=== PATIENT | female | born 1935 | race Caucasian/White ===

== ENCOUNTER 2016-11-08 14:41 | Inpatient (IN) | payer MEDICARE, OTHER ==
--- NOTE | ~2016-11-08 | OP ---
Record Of Operation [facility] [address] [place]. [address] NAME: YAMILET ALVARENGA : 36 STATUS : ADM IN PAT#: [id number] AGE: 80 ADM/REG DATE : 11/08/16 MR#: [id number] REPORT SERV DATE: 11/10/16 DICTATED BY: ROMA CAPELLAN DATE: 11/10/16 REPORT STATUS : Draft TRANSCRIBED BY: CARRIE DATE: 11/10/16 DATE OF PROCEDURE: 11/10/2016 PREOPERATIVE DIAGNOSIS: Basilar neck fracture, right hip. POSTOPERATIVE DIAGNOSIS: Basilar neck intertrochanteric fracture, right hip. PROCEDURE: Cemented bipolar prosthesis, right hip. DESCRIPTION OF PROCEDURE: The patient was brought to the operating room after several attempts of spinal anesthesia. This was eventually successful. The patient was supplemented with both IV and inhalation sedation. Decision was made to do a cemented bipolar prosthesis because of her severe pulmonary disease and marked osteoporosis. It was not felt that compression screw would be of satisfactory to give her stabilization for mobility further pulmonary demise. She was placed in a lateral position with hip, thigh, groin, leg and buttock were scrubbed, prepped, and draped in usual sterile fashion. A posterior lateral incision beginning in the greater trochanter was carried proximally down the skin and subcutaneous tissue and down the fascia chante which was cleaned off and divided in the direction of skin incision. A Charnley retractor was placed deep in the wound protecting the sciatic nerve. The rotators were identified, cleaned off with periosteal elevator, and hemostasis obtained using electrocoagulation. The piriformis tendon was tagged with a #1 Vicryl suture, and the rotators and capsule were divided by electrocautery along the neck in the trochanter. The fracture was identified and appeared to be more intertroch than basilar neck with some comminution of the neck posterior medial cortex and minimal displacement of the greater trochanter at this point. The head was removed with some difficulty, initially trying to use a corkscrew and ligamentum teres cutter and then trying to use a tenaculum approximately 50%. It was removed piecemeal and then the major intra- articular fragment was removed after ligamentum teres was able to be divided. Hemostasis was obtained using electrocoagulation. Multiple fragments along the neck were removed. The femoral canal was prepared by initial cylindrical reaming up to 14-15 mm and broaching to a size 3 in 30 degrees of anteversion. Trial reduction was done with 44 and 45 as well as 46 mm acetabular component, thus 45 gave an excellent suction fit. Some extraneous soft tissue was removed both by rongeur and with a curette from the acetabulum. The femoral canal was prepared by using a canal brush. A large cement restrictor 2-3 cm distal to the tip of the prosthesis and pulse lavage irrigation and two packs of cement were vacuum mixed and inserted with a cement gun pressurized with an osteotome. The size 2 Savannah Vernon stem was placed in 25 degrees of anteversion. The extraneous cement was removed. Record Of Operation [address] [address] NAME: YAMILET ALVARENGA : 36 STATUS : ADM IN PAT#: [id number] AGE: 80 ADM/REG DATE : 11/08/16 MR#: [id number] REPORT SERV DATE: 11/10/16 DICTATED BY: ROMA CAPELLAN DATE: 11/10/16 REPORT STATUS : Draft TRANSCRIBED BY: CARRIE DATE: 11/10/16 Trial reduction was done with a 0 and +4 neck, 0 giving good stability and no impingement. The Tracy taper was meticulously dried. The +0 head was impacted and then a 45 mm bipolar component snapped into place. The components were reduced. Full range of motion with good stability were obtained. The greater trochanter had completely pulled away by this point and was reattached with multiple #2 FiberWire sutures passed through drill holes and passed through the bone of the shaft and then reinforced through the iliotibial band and some of the subperiosteal tissue. The piriformis tendon was loosely reattached to the posterior aspect of the greater trochanter. The fascia chante was closed with running interrupted #1 Vicryl sutures, subcutaneous tissue with 2-0 and the skin with skin naomie. The wound was instilled with 0.5% Marcaine with epinephrine. The patient was stable as could be expected throughout the procedure. She received 700 mL crystalloid, 250 mL of albumin, and had a blood loss of approximately 350 mL. NS/MODL Roma Capellan M.D. / [id number] CC: Maria Elena Garcia M.D.
--- NOTE | ~2016-11-08 | HP ---
History And Physical [address] [place]. [address] NAME: YAMILET ALVARENGA : 36 STATUS : ADM IN PAT#: [id number] AGE: 80 ADM/REG DATE : 11/08/16 MR#: [id number] REPORT SERV DATE: 11/08/16 DICTATED BY: LUCILLE OSORIO DATE: 11/08/16 REPORT STATUS : Draft TRANSCRIBED BY: CARRIE DATE: 11/08/16 DATE OF ADMISSION: 11/08/2016 CHIEF COMPLAINT: Left hip fracture and fall. HISTORY OF PRESENT ILLNESS: The patient is a 80-year-old female with past medical history of COPD, Alzheimer's dementia, depression, anxiety, thyroid disorder, bladder cancer seen by Dr. Castanon in the past who was recently on hospice due to likely Alzheimer's and COPD, but has been currently off hospice and at [facility] residence where she has been previously doing her daily activities. She was transferring from bed to wheelchair when she had fall approximately on Monday. She has also recently had treatment for urinary tract infection about two weeks ago and completed treatment but over the last few days has had increased shortness of breath also. She was started on Bactrim antibiotics yesterday but has been complaining of hip pain. It has been on left side, constant, moderate sharp severity, decreased activity. No nausea or vomiting, but did have little bit of fevers, wheeze, cough, and congestion. No radiating symptoms were reported. Symptoms were worse at hip with range of motion and palpation, relieved only by rest. Symptoms are currently present. The patient is slightly more weak than her baseline per family. The patient does have baseline dementia and is minimally interactive at times. The patient was found to have pneumonia and left hip fracture. The patient has been discussed with Dr. David Gandara, Orthopedic and family requesting to proceed with OR when able. ADDITIONAL REVIEW OF SYSTEMS: A 10-point review of systems negative except for that noted in the HPI. However, majority of review of systems obtained from family as the patient unable to respond well with verbal responses at this time and from history from outside facility. Past medical history obtained from prior records. ALLERGIES: NOTED FOR MORPHINE AND MELOXICAM. PAST MEDICAL HISTORY: Of diabetes, hypertension, heart disease, stroke, seizure, peptic ulcer disease, biliary tract disease, liver disease, sleep apnea, COPD, Alzheimer's dementia since 2009, bladder cancer seen by Dr. Castanon, respiratory status seen by Dr. Thornton. SURGICAL HISTORY: Appendectomy many years ago, has had skin lesions removed in the past. FAMILY HISTORY: Of strokes. SOCIAL HISTORY: Prior smoking history quit in 2013. No current alcohol or illicits. MEDICATIONS: Duo-nebs, aspirin, vitamin D, Celexa, Neurontin, Eola, levothyroxine, Ativan, Theravent, fish oil, Senokot, trazodone, Bactrim DS, Neosporin, Depakene. EKG: Normal sinus rhythm, rate 96, QTc 437. PHYSICAL EXAMINATION: History And Physical [address] [address] NAME: YAMILET ALVARENGA : 36 STATUS : ADM IN [facility]#: [id number] AGE: 80 ADM/REG DATE : 11/08/16 MR#: [id number] REPORT SERV DATE: 11/08/16 DICTATED BY: LUCILLE OSORIO DATE: 11/08/16 REPORT STATUS : Draft TRANSCRIBED BY: CARRIE DATE: 11/08/16 VITAL SIGNS: Blood pressure 97/55, temperature 100.4, pulse 94, respirations 22, O2 sats 94% on 4 L. GENERAL: Frail elderly. EYES: No scleral icterus. EOMI. ENT: Dry mucous membranes. Nares patent. RESPIRATORY: Polyphonic breath sounds bilateral. CHEST: Equal chest expansion. CV: Tachycardic, no rubs. No pedal edema. GI: Soft, nontender, nondistended. Bowel sounds positive. : Deferred. MUSCULOSKELETAL: Pain with left lower extremity motion and lifting up. SKIN: Warm and dry with areas of picking, unable to turn patient due to pain. Family requested not to rotate the patient currently at this time to decrease pain to patient. HEME: No bleeding or bruising grossly. NEURO: Awakens to verbal stimulation and tactile stimulation. Minimally responsive, does have a hard auditory history and does squeeze hands on command. PSYCH: Difficult to appreciate mood and affect secondary to pain and underlying dementia. LABS: Portable chest; low lung volumes, crowding with bibasilar atelectasis. CMP; procalcitonin 0.61, sodium 144, potassium 3.7, BUN creatinine 27 and 1.31. LFTs within normal limits. Depakene 70.6. Urinalysis; negative leukocyte esterase and nitrites. Lactate 1.1. ABG; pH 7.39, pCO2 44, pO2 39, bicarb 26.2. CBC: WBC count 12.7, H and H 13 and 39.3, platelets 217, and INR 1.2. ASSESSMENT AND PLAN: 1. Healthcare-associated pneumonia, present on arrival. 2. Sepsis, present on arrival. 3. Left hip fracture, present on arrival. 4. Hypotension. 5. Azotemia. 6. Chronic debility. 7. Congestive heart failure history reported. 8. DNR DNI. PLAN: 1. For HCAP, IV vanc and cefepime, given healthcare association, and these have been started in the emergency room. Lactate within normal limits. The patient when calculating CURB-65 does have a CURB-65 of at least 3 with approximately 13% to 14% mortality, based of just pneumonia component. 2. We will continue close monitoring, IV fluids, goal-directed therapy in the presence of sepsis too. 3. Sepsis present on arrival with tachycardia, tachypnea, leukocytosis, early goal- directed therapy initiated in the emergency room. IV fluids have been bolused initially with improvement and response to blood pressure. We will continue IV fluids, History And Physical [address] [address] NAME: YAMILET ALVARENGA : 36 STATUS : ADM IN [facility]#: [id number] AGE: 80 ADM/REG DATE : 11/08/16 MR#: [id number] REPORT SERV DATE: 11/08/16 DICTATED BY: LUCILLE OSORIO DATE: 11/08/16 REPORT STATUS : Draft TRANSCRIBED BY: MODSalma DATE: 11/08/16 monitoring closely. 4. The patient family reports CHF history although last ejection fraction approximately 55% to 60% in 2013. We will monitor, close I's and O's. 5. Left hip fracture. Evaluate per Orthopedic. Guardado score approximately 5.63%. Family requesting to proceed with Ortho or when able to. Given the patient's multiple comorbidities, it has been explained by this scenario writer and additionally by Orthopedic team high risk complications including and mortality. We will ask for additional assistance from Pulmonary for additional options for optimizing pulmonary history along with treating HCAP. We will do chest PT, O2, Duo-nebs if any additional optimization can be done. 6. Hypotension, responding to IV fluids. We will continue to monitor closely. 7. Azotemia, IV fluids treat HCAP. 8. Chronic debility. Go to PT/OT when tolerating. 9. CHF history, currently hypovolemic with EF last noted in 2013 55% to 60%, IV fluids for that and monitor vital signs. 10.DNR DNI seen on POLST form. Additionally confirmed with family members who are at bedside but agreeable for antibiotics and surgical intervention if required. DDN/MODL Lucille Osorio MD / [id number] CC: MD Rafael Tobin M.D.
--- NOTE | ~2016-11-08 | CN ---
Consultation Report [facility] [address] [place]. [address] NAME: YAMILET ALVARENGA : 36 STATUS : ADM IN PAT#: [id number] AGE: 80 ADM/REG DATE : 11/08/16 MR#: [id number] REPORT SERV DATE: 11/09/16 DICTATED BY: SUNIL PATEL DATE: 11/09/16 REPORT STATUS : Draft TRANSCRIBED BY: MODSalma DATE: 11/09/16 CONSULTATION DATE OF CONSULTATION: 11/09/2016 CHIEF COMPLAINT: Shortness of breath and cough. HISTORY OF PRESENT ILLNESS: Mrs. Yamilet Alvarenga is a 80-year-old white female with a past medical history significant for Alzheimer's dementia, COPD with oxygen dependence, emphysema, and congestive heart failure, who presents to [facility]'s Emergency Room after sustaining a fall and fracture to the left femur. It should be noted that, Mrs. Alvarenga has not been hospitalized recently, but has an overall declining course over the last two to three months. Mrs. Alvarenga is followed in our outpatient clinic by Dr. Thornton. She was last seen in January of last year for concerns related to her COPD and mediastinal lymphadenopathy. The patient is on chronic oxygen continuously at 2 L. That being said, she often refuses to wear her oxygen. She has been on pulmonary medications in the past, but again has refused these medications. The patient quit smoking in 2012, prior to this time, she smoked one or two packs of cigarettes a day for a period of 35 years. She largely denies symptomatology consistent with obstructive sleep apnea. She has difficulty quantifying her exercise tolerance as she has had difficulty with ambulation as of late. It should be noted that Mrs. Alvarenga has great difficulty providing any historical information. That being said, her daughter who is currently at bedside has been very helpful with the following information. Apparently, Mrs. Alvarenga has become difficult to manage at home and the daughter recently had her staying in a penitentiary facility. While she was there, apparently she developed symptoms consistent with UTI and was treated with antibiotics. She was apparently ambulating there with a walker when she took a fall and unfortunately with her descent to the floor experiencing intertrochanteric fracture of the proximal left femur. During this time, she was noted to have a rattling cough. The concerns over the fracture and pneumonia prompted her transfer to [facility]. Upon arrival, she was found to have a white blood cell count of 13,000. Initial creatinine was 1.3. She did undergo an x-ray of the left hip, which did in fact show femur fracture. A chest x-ray was obtained as well, which showed low lung volumes with crowding of the pulmonary vasculature. There is some bibasilar atelectasis appreciated as well. The patient was started on healthcare acquired pneumonia coverage and was seen by Surgery for consideration of fixation of her left fracture. Pulmonary has been consulted for assistance in treating the pneumonia as well as hopeful preoperative optimization. Currently, Mrs. Alvarenga is on a nonrebreather with good oxygen saturations. She is in no obvious signs of respiratory distress. She does cough periodically, but is not expectorating any purulent sputum. She denies any worsening shortness of breath. Her Consultation Report [facility] [address] [place]. [address] NAME: YAMILET ALVARENGA : 36 STATUS : ADM IN [facility]#: [id number] AGE: 80 ADM/REG DATE : 11/08/16 MR#: [id number] REPORT SERV DATE: 11/09/16 DICTATED BY: SUNIL PATEL DATE: 11/09/16 REPORT STATUS : Draft TRANSCRIBED BY: CARRIE DATE: 11/09/16 daughter denies any overt signs of aspiration. She does have known COPD and emphysema. The patient currently denies any murmurs, angina, or palpitations. She denies any orthopnea or dependent edema. In regard to constitutional symptoms, she has had some mild low-grade temperatures measured here as high as 100.4. She denies any nausea and vomiting, abdominal pain, or edema. PAST MEDICAL HISTORY: 1. COPD with oxygen dependence. 2. Mediastinal lymphadenopathy. 3. Emphysema. 4. Alzheimer's dementia. 5. Bladder cancer. 6. Chronic diarrhea. 7. Congestive heart failure. 8. Dyslipidemia. PAST SURGICAL HISTORY: 1. Appendectomy. 2. Cataract surgery. 3. Cholecystectomy. 4. Cystoscopy with resection of tumor. 5. Laminectomy of lumbar spine x2. 6. Partial colectomy. FAMILY HISTORY: The patient states her father had black lung. SOCIAL HISTORY: The patient is . She has three children: Two daughters and one son. She previously worked as a basin finish operator tig welder and may have had excessive exposures to welding fumes. She denies any known exposures to asbestos or silica. TOBACCO/ALCOHOL: As previously mentioned, the patient quit smoking in 2012, prior to this time, she smoked one to two packs a day for a period of 35 years. She denies any recent alcohol or illicit drug use. MEDICATIONS: 1. DuoNebs. 2. Aspirin 81 mg. 3. Citalopram 20 mg. 4. Gabapentin 100 mg. 5. [place] 10/325. 6. Levothyroxine 25 mcg. 7. Lorazepam 0.5 mg. 8. Trazodone 50 mg. Consultation Report [address] [address] NAME: YAMILET ALVARENGA : 36 STATUS : ADM IN [facility]#: [id number] AGE: 80 ADM/REG DATE : 11/08/16 MR#: [id number] REPORT SERV DATE: 11/09/16 DICTATED BY: SUNIL PATEL DATE: 11/09/16 REPORT STATUS : Draft TRANSCRIBED BY: CARRIE DATE: 11/09/16 9. Bactrim. 10.Valproic acid 250 mg. ALLERGIES: THE PATIENT HAS KNOWN ALLERGIES TO MORPHINE. SHE HAS ADVERSE REACTION TO MOBIC. REVIEW OF SYSTEMS: A complete review of systems was performed with pertinent positives and negatives contained within the body of the HPI. PHYSICAL EXAMINATION: VITAL SIGNS: Blood pressure is 108/58, heart rate 72, T-max is 97.5, respiratory rate is 19, SPO2 is 100% on a nonrebreather. GENERAL: Mrs. Alvarenga is a confused, demented 80-year-old white female, who is not currently exhibiting any signs of acute distress. SKIN: Skin with appropriate texture and turgor. No rashes, lesions, or ulcers. HEENT: Head skull is normocephalic, atraumatic. Facies are symmetric. No masses or lesions. Eyes: Sclerae anicteric. Conjunctivae pink without exudates. Extraocular movements are intact. Pupils are equal, round, and reactive to light. Ears: Auricles and tragus without pain to palpation. Hair is grossly intact. Nose: Bilateral nasal patency. Sinuses without tenderness upon palpation. Throat: The patient refuses to open her mouth. NECK: Neck is supple. Trachea midline. No cervical lymphadenopathy appreciated. THORAX/LUNGS: Thorax is symmetric with equal chest rise. Breath sounds are audible through entire field. There are diffuse rhonchi appreciated throughout. CARDIOVASCULAR: Regular rate and rhythm. No murmurs, rubs, or gallops. Anterior chest without thrills, heaves, or lifts. ABDOMEN: Soft, nondistended, nontender. Active bowel sounds in all four quadrants. PERIPHERAL VASCULAR: No edema. No varicosities, stasis changes, open sores, ulcerations, or phlebitis. 2+ pulses in the radial. MUSCULOSKELETAL: Left hip not ranged. NEUROLOGIC: Cranial nerves 2-12 grossly intact. PSYCHIATRIC: The patient is alert, but not fully oriented to place or time. ACCESSORY DATA: White blood cell count is 6600, hemoglobin and hematocrit are 10.5 and 32.4. Procalcitonin is 0.61. Electrolyte panel was within normal limits. Arterial blood gas on 3 L reveals pH of 7.39, PACO2 of 44, PAO2 of 39, and bicarb of 26.1. Two view of the hip reveals a fractured left hip. Chest x-ray reveals possible pneumonia and atelectasis in the bases. IMPRESSION: 1. Xmntv-ie-lljmagh hypoxemic respiratory failure. 2. Healthcare-acquired pneumonia. 3. Left intertrochanteric femur fracture. 4. Chronic obstructive pulmonary disease. 5. Congestive heart failure. Consultation Report [address] [address] NAME: YAMILET ALVARENGA : 36 STATUS : ADM IN [facility]#: [id number] AGE: 80 ADM/REG DATE : 11/08/16 MR#: [id number] REPORT SERV DATE: 11/09/16 DICTATED BY: SUNIL PATEL DATE: 11/09/16 REPORT STATUS : Draft TRANSCRIBED BY: MODL DATE: 11/09/16 6. Alzheimer's dementia. PLAN: 1. At this time, we will transition the patient from a nonrebreather to a humidified oxygen source and wean accordingly with the understanding that she has some baseline hypoxemia even at 2 L of oxygen. The patient is appropriately DNR and DNI at this time. 2. In regard to the patient's healthcare-associated pneumonia, she has been placed on appropriate antibiotic coverage. We will attempt to obtain sputum to help guide further antibiotic treatment. We will attempt to increase her pulmonary toilet with the understanding that she is somewhat limited in this regard. 3. In regard to the patient's left fracture and need for surgical intervention in a timely fashion, we will attempt to optimize her as soon as we can. That being said, we would consider her to be a high risk for pre, christine, and postoperative pulmonary complications. Her ARISCAT score for overall postoperative pulmonary complications is calculated at 13.3%. Her Arozullah score for the need of continuous mechanical ventilation postprocedurally is estimated to be 26.6%. 4. In regard to the patient's chronic obstructive pulmonary disease, we will place her on a full armamentarium and nebulized medications. 5. In regard to the patient's Alzheimer's dementia, the patient does understand the associated risks and her overall poor prognosis at this point. The aforementioned impression and plan has been discussed with Dr. Candelario who will follow further recommendations. We thank you for this consult and look forward to participating in the care of Mrs. Yamilet Alvarenga. GBS/MODL Sunil Patel PA-C / [id number] CC: MD Rafael Tobin M.D.
--- NOTE | ~2016-11-08 | DS ---
Discharge Summary [id number] [place]. [address] NAME: YAMILET ALVARENGA : 37 STATUS : DIS IN PAT#: [id number] AGE: 81 ADM/REG DATE : 11/08/16 MR#: [id number] REPORT SERV DATE: 01/17/17 DICTATED BY: MARIAM ARCHULETA DATE: 11/16/16 REPORT STATUS : Draft TRANSCRIBED BY: CARRIE DATE: 11/16/16 ADMISSION DATE: 11/08/2016 DISCHARGE DATE: 11/16/2016 CONSULTATION: 1. Dr. David Gandara, orthopedic surgeon. 2. Pulmonology. PROCEDURES: Cemented bipolar prosthesis, right hip. DISCHARGE DIAGNOSES: 1. Healthcare-associated pneumonia. 2. Acute on chronic respiratory failure. 3. Chronic obstructive pulmonary disease exacerbation. 4. Left intertrochanteric fracture of the proximal left femur status post cemented bipolar prosthesis. 5. Advanced dementia, Alzheimer type. 6. Hypothyroidism. 7. Diastolic heart failure with preserved EF, compensated. HISTORY OF PRESENT ILLNESS: This is an 81-year-old female with medical history significant for COPD, Alzheimer dementia, depression, anxiety disorder, thyroid disorder, bladder cancer, being seen by Dr. Alegria in the past, who was on hospice care secondary to advanced dementia and advanced COPD and a resident of [facility] long-term, who presented to the hospital after a ground-level fall, found to have left hip fracture. In the ER, she was found to have polyphonic breath sounds. Chest x-ray noted for low lung volumes and bibasilar atelectasis. WBC was elevated at 12.7. An assessment of left hip fracture was made as well as healthcare-associated pneumonia, and she was admitted to the hospitalist service for further management. HOSPITAL COURSE: HCAP: The patient was started on broad-spectrum antibiotics with IV vancomycin and cefepime. The patient was continued on DuoNebs. The patient's shortness of breath, cough, continues to improve throughout the course of admission. The patient was noted to also have significant increase in oxygen requirement and was noted to develop acute on chronic respiratory failure during the course of this admission. This was attributed to both HCAP as well as COPD exacerbation. The patient's white cell count gradually trended down, oxygen requirement went back to baseline, and IV antibiotics was transitioned to p.o. antibiotics. The patient continued to tolerate p.o. antibiotics, completed a total of 10 days treatment for HCAP prior to discharge. At the time of discharge, the patient's oxygen requirement has now returned back to baseline of 3 L of oxygen. Acute on chronic respiratory failure related HCAP as well as COPD exacerbation. The patient continued to get, in addition to IV antibiotics, IV steroids as well as aggressive breathing treatment. The patient's oxygen requirement initially was as high as 10 L. Also, at a point, requiring a Vapotherm for respiratory support. The patient's pneumonia and COPD continued to improve. The patient's respiratory status also improved, and at the time of Discharge Summary [address] [place]. [address] NAME: YAMILET ALVARENGA : 37 STATUS : DIS IN PAT#: [id number] AGE: 81 ADM/REG DATE : 11/08/16 MR#: [id number] REPORT SERV DATE: 01/17/17 DICTATED BY: MARIAM ARCHULETA DATE: 11/16/16 REPORT STATUS : Draft TRANSCRIBED BY: CARRIE DATE: 11/16/16 discharge, the patient was requiring oxygen at normal baseline. Left hip fracture: The patient was noted to have a hip fracture on presentation. Orthopedic Surgery was consulted. Recommended a cemented bipolar prosthesis on the right hip. The patient had this procedure done during the course of this admission without any further complications. The patient was advised to continue physical therapy as an outpatient and follow up with orthopedic surgeon. Advanced dementia secondary to Alzheimer disease: The patient is known to have Alzheimer disease. The patient's daughter was at the bedside throughout the course of this admission. At the time of discharge, the patient will be discharged back to longterm facility at [facility]. All family's questions and concerns were addressed during the course of this admission. Family member was in agreement with this discharge plan. X-ray of the pelvis shows, impression, fracture of the left hip. DISCHARGE DISPOSITION: To [facility]. DISCHARGE ACTIVITIES: As tolerated. DISCHARGE DIET: Low-salt diet. A total of 35 minutes was spent on this patient's discharge, reconcile medication, and advised this patient on discharge plans and followup. IOO/MODL Mariam Archuleta MD / [id number]
--- NOTE | ~2016-11-08 | IDS ---
Interim Discharge Summary [facility] [address] [place]. [address] NAME: YAMLIET ALVARENGA : 37 STATUS : ADM IN PAT#: [id number] AGE: 80 ADM/REG DATE : 11/08/16 MR#: [id number] REPORT SERV DATE: 11/13/16 DICTATED BY: REBECCA BOSS DATE: 11/13/16 REPORT STATUS : Draft TRANSCRIBED BY: CARRIE DATE: 11/13/16 ADMISSION DATE: 11/08/2016 DISCHARGE DATE: DATE OF TRANSFER: Date of transfer of this patient to my colleague would be 11/15/2016. CONDITION: Condition of the patient so far is stable. DIAGNOSES: So far include the followin. Left hip fracture and fall. It is to be noted that the surgery that has been done is also on the left hip, and there has been a mistake in Dr. Gandara's note saying that it is right hip, but it should be left hip. So, the patient has had a left hip fracture and has undergone minimally invasive arthroplasty of the left hip by Dr. Gandara. 2. Acute respiratory failure secondary to healthcare-associated pneumonia. 3. Advanced dementia. 4. Depression, anxiety, and thyroid disorder, which are all stable. 5. History of bladder cancer, seen by Dr. Castanon in the past. 6. Has been on hospice care before, but was recently discharged from hospice care but continues to be a resident of [facility] because of her advanced Alzheimer's. BRIEF HOSPITAL COURSE: Ms. Yamilet Alvarenga is a 80-year-old patient with advanced dementia, who is cared for by both her daughters. Her primary caregiver is one of her daughters, and she was cared for by this person until a few months ago when she had to be moved to [facility] for care as her dementia was advanced to a point where the patient was extremely confused and was simply unable to take care of herself. She was actually brought in on the 11/08/2016 with accidental fall and left hip fracture. As the patient was seen by orthopedic surgeon, Dr. Gandara and as this could be done with minimally invasive surgery under minimal anesthesia, Orthopedic proceeded and fix the left hip. The patient has been back from surgery, and for a day or two after surgery, the patient was in acute respiratory failure. She was given supportive care and put on BiPAP for some time, and now, she is on Vapotherm, and this was subsequently changed also to oxygen via nasal cannula. The patient continues to have high oxygen requirement, but this is more so because of bilateral atelectasis and her inability to cooperate to take deep breaths and do incentive spirometry more than she cap itself. However, the patient has been treated as if this is healthcare-associated pneumonia, and the patient has improved. The patient has been on IV cefepime and vancomycin, and tomorrow, she will be completing seven days of IV cefepime. In the meantime, her blood cultures came back positive for Staphylococcus or MECA. After consulting with ID, it was suggested that the patient stay on at least 14 days of vancomycin. Hence, tomorrow which is 11/14/2016, the patient will be completing seven days of IV vancomycin. The plan is to continue IV vancomycin for seven more days. In the meantime, the patient's respiratory status has improved significantly, and her oxygen requirements have been getting lower and lower. However, the patient requires 24/7 care and is pretty much bed-bound because of severely advanced Alzheimer's. The issue on 11/13/2016 was that the patient's Blum catheter was removed, but the patient Interim Discharge Summary [address] [address] NAME: YAMILET ALVARENGA : 37 STATUS : ADM IN [facility]#: [id number] AGE: 80 ADM/REG DATE : 11/08/16 MR#: [id number] REPORT SERV DATE: 11/13/16 DICTATED BY: REBECCA BOSS DATE: 11/13/16 REPORT STATUS : Draft TRANSCRIBED BY: MODL DATE: 11/13/16 has been unable to urinate. So, we are trying to straight cath her every six hours and then if it requires that we straight cath her even after 24 hours, it may be required that the patient needs re-insertion of her Blum catheter. It is best to keep this patient on the snuff drier side as she has very poor pulmonary reserve. The patient's code status is a DNR according to family. So, this patient should be able to be moved back to [facility] once her oxygen requirements get lower to finish her intravenous antibiotic course with vancomycin for a total of 14 days. The patient will continue to receive minimal physical therapy and occupation therapy while at [facility] hopefully. So far, other than discussing with the daughters and her code status being do not resuscitate, we have not done much else for this patient other than give her supportive care. RRA/MODL Rebecca Boss M.D. / [id number] CC: Brie Iglesias M.D.
[~2016-11-08 14:41] MED LIST: ACCUNE1 INH; ACET500CAP PO; ARICEPT10 PO; ARICEPT5 PO; ASAB PO; BUSPAR15 M1 PO; CELEXA10 PO; CELEXA20 PO; FISH-EPA1000 MG PO; FLUOCINONIDE0.051 TOP; HALF81 PO; K-TABS10 MEQ PO; KLONO5 PO; LEVOTHROID50 MCG PO; LEVOTHYROXIN50 MCG PO; MELATONIN5 M1 PO; METHOC500B PO; MOBIC7.5 PO; NIACIN 500 PO; NORCO1 TA1 PO; OMNICEF300 PO; PEPTO-BISMOL TA1 TAB PO; PROAIR HFA INH; SACCHAROMYCES BOULARDII PO; SIN25 PO; SPIRIVA INH; STERAPDS12; SYSTANE OPH; TRIAMCINOLON0.025 % TOP; TYLENOL PM PO; VITAMIN D1000 UNI1 PO; [UNRECOGNIZED DRUG - OTHER] PR
[2016-11-08] MEDS ORDERED: ASAB PO (14:43)
[2016-11-08] MEDS ORDERED: BACDS PO (14:44)
[2016-11-08] MEDS ORDERED: CELEXA20 PO (14:45)
[2016-11-08] MEDS ORDERED: THERGRANM PO (14:45)
[2016-11-08] MEDS ORDERED: NEUR100 PO (14:46)
[2016-11-08 14:48] LABS: BASOPHILS 0.3 %; BASOPHILS ABSOLUTE 0.04 10/3/uL (0.0-0.16); EOSINOPHILS 1.7 %; EOSINOPHILS ABSOLUTE 0.21 10/3/uL (0.0-0.53); HEMATOCRIT 39.3 % (36.0-48.0); IMMATURE GRANULOCYTES 0.2 %; IMMATURE GRANULOCYTES ABSOLUTE 0.03 10/3/uL (0.0-0.11); LYMPHOCYTES 8.7 %; LYMPHOCYTES ABSOLUTE 1.11 10/3/uL (0.67-4.30); MEAN CORPUS HGB CONC 33.1 g/dL (32.0-36.0); MEAN PLATELET VOLUME 9.2 fL (9.2-13.0); MONOCYTES 10.8 %; MONOCYTES ABSOLUTE 1.38 10/3/uL (0.21-1.20); NEUTROPHILS 78.3 %; NEUTROPHILS ABSOLUTE 9.95 10/3/uL (2.02-8.40); PLATELET COUNT 217 10/3/uL (150-400); RBC DISTRIBUTION WIDTH 14.5 % (12.0-16.0); WHITE BLOOD CELLS 12.7 10/3/uL (4.5-10.5)
[2016-11-08] MEDS ORDERED: LEVOTHYROXIN25 MCG PO (14:49)
[2016-11-08] MEDS ORDERED: DUONEB INH (14:49)
[2016-11-08] MEDS ORDERED: ATV.5 PO (14:50)
[2016-11-08] MEDS ORDERED: SENTAB PO (14:51)
[2016-11-08] MEDS ORDERED: NEO-OINT15 TOP (14:51)
[2016-11-08] MEDS ORDERED: FISH OIL1200 MG PO (14:51)
[2016-11-08] MEDS ORDERED: DEPAKUDL PO ×2 (14:52→14:53)
[2016-11-08] MEDS ORDERED: TRAZ50 PO (14:52)
[2016-11-08] MEDS ORDERED: VITAMIN D1000 UNI1 PO (14:53)
[2016-11-08 14:54] LABS: MANUAL DIFF NO %; MEAN CORPUSCULAR VOLUME 93.6 fL (80-100)
[2016-11-08] MEDS ORDERED: NORCO1 TAB PO (14:54)
[2016-11-08 14:55] LABS: INTERNATIONAL NORMAL RATI 1.2 UNITS (-); PROTIME (NOT ORD) 14.7 SEC (12.0-14.5)
[2016-11-08 14:56] LABS: PARTIAL THROMBO TIME 28.8 SEC (22.5-37.2)
[2016-11-08 15:02] LABS: ALLENS TEST Pos; BE (BASE EXCESS) 0.9 MEQ/L (0 +/- 2.5); CARBOXYHEMOGLOBIN 1.4 % (0-3); HCO3 (ACTUAL BICARBONATE) 26.2 MEQ/L (23-27); HEMOBLOGIN CONTENT 13.7 G/DL (12-16); INSTRUMENT SERIAL # 8087; METHEMOGLOBIN 0.4 % (0-3); O2 CONTENT 14.1 VOL% (18-24); OPERATOR ID 35188; PCO2 (CO2 TENSION) 44 MMHG (35-45); PO2 (O2 TENSION) 39 MMHG (79-93); pH 7.39 (7.37-7.43)
[2016-11-08 15:03] LABS: A/G RATIO 0.6 (0.7-1.9); ALBUMIN 2.7 G/DL (3.5-5.0); ALKALINE PHOSPHATASE 71 U/L (45-117); CALCIUM, SERUM 8.4 MG/DL (8.5-10.4); CHLORIDE, SERUM 106 MMOL/L (96-112); CO2 (CARBON DIOXIDE) 27 MMOL/L (24-34); CREATININE 1.31 MG/DL (0.55-1.02); DEPAKENE (VALPROIC ACID) 70.6 MCG/ML (50.0-100.0); GFR AFRICAN AMERICAN 45 ML/MIN (>=60); GFR NON AFRICAN AMERICAN 39 ML/MIN (>=60); GLOBULIN 4.4 G/DL (2.5-4.1); GLUCOSE, SERUM 78 MG/DL (60-99); POTASSIUM, SERUM 3.7 MMOL/L (3.5-5.3); SGOT(AST) 16 U/L (5-40); SGPT(ALT) 14 U/L (5-65); SODIUM, SERUM 144 MMOL/L (135-148); TOTAL BILIRUBIN 0.6 MG/DL (0-1.2); TOTAL PROTEIN 7.1 G/DL (6.0-8.5)
[2016-11-08 15:04] LABS: BUN (BLOOD UREA NITROGEN) 27 MG/DL (6-23)
[2016-11-08 15:36] LABS: WBC (NOT ORDERED) (RFLEX) 0 (0-5)
[2016-11-08 15:46] LABS: ASCORBIC ACID (UR NOT ORDER) NEG (NEG); BILIRUBIN, URINE NEGATIVE (NEG); ER URINALYSIS TAT 0 Hrs 10 Mins; KETONE, URINE TRACE MG/DL (NEG); LEUKOCYTE ESTERASE(NOT OR NEG (NEG); NITRITE (URINE) NEG (NEG)
[2016-11-08 15:51] LABS: PROCALCITONIN 0.61 ng/mL (<0.5)
[2016-11-08 23:05] LABS: BASOPHILS 0.2 %; BASOPHILS ABSOLUTE 0.02 10/3/uL (0.0-0.16); EOSINOPHILS 0.7 %; EOSINOPHILS ABSOLUTE 0.06 10/3/uL (0.0-0.53); HEMATOCRIT 31.3 % (36.0-48.0); HEMOGLOBIN 10.3 g/dL (12.0-16.0); IMMATURE GRANULOCYTES 0.1 %; IMMATURE GRANULOCYTES ABSOLUTE 0.01 10/3/uL (0.0-0.11); LYMPHOCYTES 11.2 %; LYMPHOCYTES ABSOLUTE 0.91 10/3/uL (0.67-4.30); MANUAL DIFF NO %; MEAN CORPUS HGB CONC 32.9 g/dL (32.0-36.0); MEAN CORPUSCULAR HEMOGLOB 30.6 pg (26.0-34.0); MEAN CORPUSCULAR VOLUME 92.9 fL (80-100); MEAN PLATELET VOLUME 9.1 fL (9.2-13.0); MONOCYTES 12.1 %; MONOCYTES ABSOLUTE 0.98 10/3/uL (0.21-1.20); NEUTROPHILS 75.7 %; NEUTROPHILS ABSOLUTE 6.13 10/3/uL (2.02-8.40); PLATELET COUNT 196 10/3/uL (150-400); RBC DISTRIBUTION WIDTH 14.4 % (12.0-16.0); RED CELL COUNT 3.37 10/6/uL (4.0-5.6); WHITE BLOOD CELLS 8.1 10/3/uL (4.5-10.5)
[2016-11-08 23:20] LABS: A/G RATIO 0.7 (0.7-1.9); ALBUMIN 2.4 G/DL (3.5-5.0); ALKALINE PHOSPHATASE 56 U/L (45-117); BUN (BLOOD UREA NITROGEN) 24 MG/DL (6-23); CALCIUM, SERUM 7.7 MG/DL (8.5-10.4); CHLORIDE, SERUM 110 MMOL/L (96-112); CO2 (CARBON DIOXIDE) 27 MMOL/L (24-34); CREATININE 0.92 MG/DL (0.55-1.02); GFR AFRICAN AMERICAN 69 ML/MIN (>=60); GFR NON AFRICAN AMERICAN 59 ML/MIN (>=60); GLOBULIN 3.3 G/DL (2.5-4.1); GLUCOSE, SERUM 81 MG/DL (60-99); PHOSPHORUS, SERUM 3.1 MG/DL (2.5-4.5); POTASSIUM, SERUM 3.7 MMOL/L (3.5-5.3); SGOT(AST) 20 U/L (5-40); SGPT(ALT) 13 U/L (5-65); SODIUM, SERUM 144 MMOL/L (135-148); TOTAL BILIRUBIN 0.5 MG/DL (0-1.2); TOTAL PROTEIN 5.7 G/DL (6.0-8.5)
[2016-11-09 07:15] LABS: BASOPHILS 0.2 %; BASOPHILS ABSOLUTE 0.01 10/3/uL (0.0-0.16); HEMATOCRIT 32.4 % (36.0-48.0); HEMOGLOBIN 10.5 g/dL (12.0-16.0); IMMATURE GRANULOCYTES 0.2 %; IMMATURE GRANULOCYTES ABSOLUTE 0.01 10/3/uL (0.0-0.11); LYMPHOCYTES 14.7 %; LYMPHOCYTES ABSOLUTE 0.97 10/3/uL (0.67-4.30); MEAN CORPUS HGB CONC 32.4 g/dL (32.0-36.0); MEAN CORPUSCULAR HEMOGLOB 30.3 pg (26.0-34.0); MEAN CORPUSCULAR VOLUME 93.6 fL (80-100); MEAN PLATELET VOLUME 9.2 fL (9.2-13.0); MONOCYTES 10.9 %; MONOCYTES ABSOLUTE 0.72 10/3/uL (0.21-1.20); PLATELET COUNT 197 10/3/uL (150-400); RBC DISTRIBUTION WIDTH 14.4 % (12.0-16.0); RED CELL COUNT 3.46 10/6/uL (4.0-5.6); WHITE BLOOD CELLS 6.6 10/3/uL (4.5-10.5)
[2016-11-09 07:18] LABS: MANUAL DIFF NO %
[2016-11-09 07:23] LABS: INTERNATIONAL NORMAL RATI 1.3 UNITS (-); PROTIME (NOT ORD) 15.8 SEC (12.0-14.5)
[2016-11-09 07:28] LABS: BUN (BLOOD UREA NITROGEN) 24 MG/DL (6-23); CALCIUM, SERUM 7.9 MG/DL (8.5-10.4); CHLORIDE, SERUM 110 MMOL/L (96-112); CO2 (CARBON DIOXIDE) 27 MMOL/L (24-34); CREATININE 0.88 MG/DL (0.55-1.02); GFR AFRICAN AMERICAN 72 ML/MIN (>=60); GFR NON AFRICAN AMERICAN 62 ML/MIN (>=60); GLUCOSE, SERUM 91 MG/DL (60-99); POTASSIUM, SERUM 3.5 MMOL/L (3.5-5.3); SODIUM, SERUM 146 MMOL/L (135-148)
[2016-11-10 06:48] LABS: CALCIUM, SERUM 8.1 MG/DL (8.5-10.4); CHLORIDE, SERUM 110 MMOL/L (96-112); CO2 (CARBON DIOXIDE) 28 MMOL/L (24-34); CREATININE 0.71 MG/DL (0.55-1.02); GFR AFRICAN AMERICAN 94 ML/MIN (>=60); GFR NON AFRICAN AMERICAN 81 ML/MIN (>=60); POTASSIUM, SERUM 3.7 MMOL/L (3.5-5.3); SODIUM, SERUM 143 MMOL/L (135-148)
[2016-11-10 06:50] LABS: BUN (BLOOD UREA NITROGEN) 15 MG/DL (6-23); GLUCOSE, SERUM 110 MG/DL (60-99); PHOSPHORUS, SERUM 2.1 MG/DL (2.5-4.5)
[2016-11-10 06:54] LABS: HEMATOCRIT 30.8 % (36.0-48.0); HEMOGLOBIN 10.2 g/dL (12.0-16.0); MEAN CORPUS HGB CONC 33.1 g/dL (32.0-36.0); MEAN CORPUSCULAR HEMOGLOB 30.1 pg (26.0-34.0); MEAN CORPUSCULAR VOLUME 90.9 fL (80-100); MEAN PLATELET VOLUME 10.1 fL (9.2-13.0); RBC DISTRIBUTION WIDTH 14.7 % (12.0-16.0); RED CELL COUNT 3.39 10/6/uL (4.0-5.6); WHITE BLOOD CELLS 5.8 10/3/uL (4.5-10.5)
[2016-11-10 06:56] LABS: MANUAL DIFF YES %; PLATELET COUNT 268 10/3/uL (150-400)
[2016-11-10 07:10] LABS: BAND NEUTROPHILS 5 %; EOSINOPHILS 2 %; EOSINOPHILS ABSOLUTE (CALC) 0.12 10/3/uL (0.0-0.53); LYMPHOCYTES 11 %; LYMPHOCYTES ABSOLUTE (CALC) 0.64 10/3/uL (0.67-4.30); MONOCYTES 3 %; MONOCYTES ABSOLUTE (CALC) 0.17 10/3/uL (0.21-1.20); NEUTROPHILS ABSOLUTE (CALC) 4.87 10/3/uL (2.02-8.40); SEGMENTED NEUTROPHIL (0) 79 %; TOTAL NUCLEATED CELLS 100
[2016-11-10 07:11] LABS: PLATELET ESTIMATE ADQ (ADEQUATE); RBC MORPHOLOGY NORM (NORMAL)
[2016-11-11 08:40] LABS: BASOPHILS 0.1 %; BASOPHILS ABSOLUTE 0.01 10/3/uL (0.0-0.16); EOSINOPHILS 0 %; HEMATOCRIT 28.1 % (36.0-48.0); HEMOGLOBIN 9.1 g/dL (12.0-16.0); IMMATURE GRANULOCYTES 0.1 %; IMMATURE GRANULOCYTES ABSOLUTE 0.01 10/3/uL (0.0-0.11); LYMPHOCYTES 7.8 %; LYMPHOCYTES ABSOLUTE 0.64 10/3/uL (0.67-4.30); MEAN CORPUS HGB CONC 32.4 g/dL (32.0-36.0); MEAN CORPUSCULAR HEMOGLOB 30.1 pg (26.0-34.0); MEAN PLATELET VOLUME 9.2 fL (9.2-13.0); MONOCYTES 5.4 %; MONOCYTES ABSOLUTE 0.44 10/3/uL (0.21-1.20); NEUTROPHILS 86.6 %; NEUTROPHILS ABSOLUTE 7.11 10/3/uL (2.02-8.40); PLATELET COUNT 239 10/3/uL (150-400); RBC DISTRIBUTION WIDTH 14.3 % (12.0-16.0); RED CELL COUNT 3.02 10/6/uL (4.0-5.6)
[2016-11-11 08:41] LABS: MANUAL DIFF NO %; WHITE BLOOD CELLS 8.2 10/3/uL (4.5-10.5)
[2016-11-11 08:43] LABS: BUN (BLOOD UREA NITROGEN) 15 MG/DL (6-23); CALCIUM, SERUM 8.3 MG/DL (8.5-10.4); CHLORIDE, SERUM 108 MMOL/L (96-112); CO2 (CARBON DIOXIDE) 28 MMOL/L (24-34); CREATININE 0.74 MG/DL (0.55-1.02); GFR AFRICAN AMERICAN 89 ML/MIN (>=60); GFR NON AFRICAN AMERICAN 77 ML/MIN (>=60); GLUCOSE, SERUM 140 MG/DL (60-99); POTASSIUM, SERUM 3.9 MMOL/L (3.5-5.3); SODIUM, SERUM 145 MMOL/L (135-148)
[2016-11-11 09:31] LABS: PROCALCITONIN 0.79 ng/mL (<0.5)
[2016-11-11 13:11] LABS: INTERNATIONAL NORMAL RATI 1.2 UNITS (-); PARTIAL THROMBO TIME 34.1 SEC (22.5-37.2); PROTIME (NOT ORD) 15.2 SEC (12.0-14.5)
[2016-11-12 07:36] LABS: BASOPHILS 0.3 %; BASOPHILS ABSOLUTE 0.02 10/3/uL (0.0-0.16); EOSINOPHILS 0.9 %; EOSINOPHILS ABSOLUTE 0.06 10/3/uL (0.0-0.53); HEMATOCRIT 26.5 % (36.0-48.0); HEMOGLOBIN 8.6 g/dL (12.0-16.0); IMMATURE GRANULOCYTES 0.2 %; IMMATURE GRANULOCYTES ABSOLUTE 0.01 10/3/uL (0.0-0.11); LYMPHOCYTES 26.4 %; LYMPHOCYTES ABSOLUTE 1.74 10/3/uL (0.67-4.30); MEAN CORPUS HGB CONC 32.5 g/dL (32.0-36.0); MEAN CORPUSCULAR HEMOGLOB 30.1 pg (26.0-34.0); MEAN CORPUSCULAR VOLUME 92.7 fL (80-100); MEAN PLATELET VOLUME 8.9 fL (9.2-13.0); MONOCYTES 10.2 %; MONOCYTES ABSOLUTE 0.67 10/3/uL (0.21-1.20); NEUTROPHILS ABSOLUTE 4.09 10/3/uL (2.02-8.40); PLATELET COUNT 254 10/3/uL (150-400); RBC DISTRIBUTION WIDTH 14.4 % (12.0-16.0); RED CELL COUNT 2.86 10/6/uL (4.0-5.6); WHITE BLOOD CELLS 6.6 10/3/uL (4.5-10.5)
[2016-11-12 07:38] LABS: MANUAL DIFF NO %
[2016-11-12 07:45] LABS: BUN (BLOOD UREA NITROGEN) 17 MG/DL (6-23); CHLORIDE, SERUM 106 MMOL/L (96-112); CO2 (CARBON DIOXIDE) 32 MMOL/L (24-34); CREATININE 0.68 MG/DL (0.55-1.02); GFR AFRICAN AMERICAN 96 ML/MIN (>=60); GFR NON AFRICAN AMERICAN 83 ML/MIN (>=60); GLUCOSE, SERUM 78 MG/DL (60-99); PHOSPHORUS, SERUM 2.2 MG/DL (2.5-4.5); POTASSIUM, SERUM 3.1 MMOL/L (3.5-5.3); SODIUM, SERUM 146 MMOL/L (135-148)
[2016-11-13 11:48] LABS: HEMATOCRIT 30.1 % (36.0-48.0)
[2016-11-14 06:20] LABS: BE (BASE EXCESS) 2.9 MEQ/L (0 +/- 2.5); CARBOXYHEMOGLOBIN 1.3 % (0-3); DEVICE VAPOTHERM; HCO3 (ACTUAL BICARBONATE) 24.9 MEQ/L (23-27); HEMOBLOGIN CONTENT 9.7 G/DL (12-16); INSTRUMENT SERIAL # 8083; METHEMOGLOBIN 0.2 % (0-3); O2 CONTENT 11.3 VOL% (18-24); OPERATOR ID 31061; PCO2 (CO2 TENSION) 29 MMHG (35-45); PO2 (O2 TENSION) 44 MMHG (79-93); SAMPLE Arterial; pH 7.55 (7.37-7.43)
[2016-11-14 13:33] LABS: BASOPHILS 0.5 %; BASOPHILS ABSOLUTE 0.04 10/3/uL (0.0-0.16); EOSINOPHILS 2.3 %; EOSINOPHILS ABSOLUTE 0.19 10/3/uL (0.0-0.53); HEMATOCRIT 30.4 % (36.0-48.0); HEMOGLOBIN 10.2 g/dL (12.0-16.0); IMMATURE GRANULOCYTES 2.2 %; IMMATURE GRANULOCYTES ABSOLUTE 0.18 10/3/uL (0.0-0.11); LYMPHOCYTES 16.8 %; LYMPHOCYTES ABSOLUTE 1.38 10/3/uL (0.67-4.30); MANUAL DIFF NO %; MEAN CORPUS HGB CONC 33.6 g/dL (32.0-36.0); MEAN CORPUSCULAR HEMOGLOB 29.9 pg (26.0-34.0); MEAN CORPUSCULAR VOLUME 89.1 fL (80-100); MEAN PLATELET VOLUME 8.9 fL (9.2-13.0); MONOCYTES 9.7 %; NEUTROPHILS 68.5 %; NEUTROPHILS ABSOLUTE 5.63 10/3/uL (2.02-8.40); PLATELET COUNT 340 10/3/uL (150-400); RBC DISTRIBUTION WIDTH 14.6 % (12.0-16.0); RED CELL COUNT 3.41 10/6/uL (4.0-5.6); WHITE BLOOD CELLS 8.2 10/3/uL (4.5-10.5)
[2016-11-14 13:47] LABS: CALCIUM, SERUM 8.4 MG/DL (8.5-10.4); CHLORIDE, SERUM 102 MMOL/L (96-112); CO2 (CARBON DIOXIDE) 31 MMOL/L (24-34); CREATININE 0.69 MG/DL (0.55-1.02); GFR AFRICAN AMERICAN 96 ML/MIN (>=60); GFR NON AFRICAN AMERICAN 83 ML/MIN (>=60); SODIUM, SERUM 142 MMOL/L (135-148)
[2016-11-14 13:52] LABS: BUN (BLOOD UREA NITROGEN) 10 MG/DL (6-23); GLUCOSE, SERUM 105 MG/DL (60-99); POTASSIUM, SERUM 2.9 MMOL/L (3.5-5.3)
[2016-11-15 06:13] LABS: BASOPHILS 1.3 %; BASOPHILS ABSOLUTE 0.08 10/3/uL (0.0-0.16); EOSINOPHILS 7.8 %; EOSINOPHILS ABSOLUTE 0.49 10/3/uL (0.0-0.53); HEMATOCRIT 28.7 % (36.0-48.0); HEMOGLOBIN 9.4 g/dL (12.0-16.0); IMMATURE GRANULOCYTES 4.6 %; IMMATURE GRANULOCYTES ABSOLUTE 0.29 10/3/uL (0.0-0.11); LYMPHOCYTES 23.7 %; LYMPHOCYTES ABSOLUTE 1.49 10/3/uL (0.67-4.30); MANUAL DIFF NO %; MEAN CORPUS HGB CONC 32.8 g/dL (32.0-36.0); MEAN CORPUSCULAR HEMOGLOB 30.1 pg (26.0-34.0); MEAN PLATELET VOLUME 8.8 fL (9.2-13.0); MONOCYTES 11.9 %; MONOCYTES ABSOLUTE 0.75 10/3/uL (0.21-1.20); NEUTROPHILS 50.7 %; NEUTROPHILS ABSOLUTE 3.18 10/3/uL (2.02-8.40); PLATELET COUNT 368 10/3/uL (150-400); RED CELL COUNT 3.12 10/6/uL (4.0-5.6); WHITE BLOOD CELLS 6.3 10/3/uL (4.5-10.5)
[2016-11-15 06:46] LABS: BUN (BLOOD UREA NITROGEN) 11 MG/DL (6-23); CALCIUM, SERUM 8.5 MG/DL (8.5-10.4); CHLORIDE, SERUM 109 MMOL/L (96-112); CO2 (CARBON DIOXIDE) 27 MMOL/L (24-34); CREATININE 0.59 MG/DL (0.55-1.02); GFR AFRICAN AMERICAN 101 ML/MIN (>=60); GFR NON AFRICAN AMERICAN 87 ML/MIN (>=60); SODIUM, SERUM 145 MMOL/L (135-148)
[2016-11-15 06:47] LABS: GLUCOSE, SERUM 81 MG/DL (60-99)
[2016-11-16 06:28] LABS: BASOPHILS ABSOLUTE 0.06 10/3/uL (0.0-0.16); EOSINOPHILS 11.9 %; EOSINOPHILS ABSOLUTE 0.69 10/3/uL (0.0-0.53); HEMOGLOBIN 8.9 g/dL (12.0-16.0); IMMATURE GRANULOCYTES ABSOLUTE 0.29 10/3/uL (0.0-0.11); LYMPHOCYTES 26.6 %; LYMPHOCYTES ABSOLUTE 1.55 10/3/uL (0.67-4.30); MANUAL DIFF NO %; MEAN CORPUSCULAR HEMOGLOB 30.4 pg (26.0-34.0); MEAN CORPUSCULAR VOLUME 92.2 fL (80-100); MEAN PLATELET VOLUME 8.5 fL (9.2-13.0); MONOCYTES 13.2 %; MONOCYTES ABSOLUTE 0.77 10/3/uL (0.21-1.20); NEUTROPHILS 42.3 %; NEUTROPHILS ABSOLUTE 2.46 10/3/uL (2.02-8.40); PLATELET COUNT 397 10/3/uL (150-400); RBC DISTRIBUTION WIDTH 15.2 % (12.0-16.0); RED CELL COUNT 2.93 10/6/uL (4.0-5.6); WHITE BLOOD CELLS 5.8 10/3/uL (4.5-10.5)
[2016-11-16 06:37] LABS: BUN (BLOOD UREA NITROGEN) 8 MG/DL (6-23); CALCIUM, SERUM 8.1 MG/DL (8.5-10.4); CHLORIDE, SERUM 107 MMOL/L (96-112); CO2 (CARBON DIOXIDE) 27 MMOL/L (24-34); CREATININE 0.57 MG/DL (0.55-1.02); GFR AFRICAN AMERICAN 101 ML/MIN (>=60); GFR NON AFRICAN AMERICAN 88 ML/MIN (>=60); GLUCOSE, SERUM 80 MG/DL (60-99); POTASSIUM, SERUM 3.6 MMOL/L (3.5-5.3); SODIUM, SERUM 143 MMOL/L (135-148); VANCOMYCIN TROUGH 11.2 MCG/ML (10.0-20.0)
[2016-11-16 06:38] LABS: PHOSPHORUS, SERUM 3.3 MG/DL (2.5-4.5)
== END 2016-11-16 17:40 | DRG 853 ==
LOC: ER 14:41 → 2SO 19:18
PROVIDERS: Hospitalist; Orthopaedic Surgery; Physician Assistant; Physician Assistant Medical; Student in an Organized Health Care Education/Training Program
PROC: 0SRR0JZ Replacement of Right Hip Joint, Femoral Surface with Synthetic Substitute, Open Approach (ICD-10-PCS; principal; 2016-11-10 09:45)
DX: A41.02 Sepsis due to Methicillin resistant Staphylococcus aureus (principal); J96.21 Acute and chronic respiratory failure with hypoxia; J18.9 Pneumonia, unspecified organism; S72.142A Displaced intertrochanteric fracture of left femur, initial encounter for closed fracture; E86.1 Hypovolemia; G30.9 Alzheimer's disease, unspecified; E11.9 Type 2 diabetes mellitus without complications; F02.80 Dementia in other diseases classified elsewhere, unspecified severity, without behavioral disturbance, psychotic disturbance, mood disturbance, and anxiety; J44.0 Chronic obstructive pulmonary disease with (acute) lower respiratory infection; J43.9 Emphysema, unspecified; W06.XXXA Fall from bed, initial encounter; Y92.009 Unspecified place in unspecified non-institutional (private) residence as the place of occurrence of the external cause; F41.9 Anxiety disorder, unspecified; F32.9 Major depressive disorder, single episode, unspecified; I10 Essential (primary) hypertension; I25.10 Atherosclerotic heart disease of native coronary artery without angina pectoris; G40.909 Epilepsy, unspecified, not intractable, without status epilepticus; K27.7 Chronic peptic ulcer, site unspecified, without hemorrhage or perforation; G47.33 Obstructive sleep apnea (adult) (pediatric); Z66 Do not resuscitate; E03.9 Hypothyroidism, unspecified; Z88.5 Allergy status to narcotic agent; Z85.51 Personal history of malignant neoplasm of bladder; Z86.73 Personal history of transient ischemic attack (TIA), and cerebral infarction without residual deficits; Z87.891 Personal history of nicotine dependence; Z98.890 Other specified postprocedural states
CPT/HCPCS: 36415; 36600; 71010; 72170; 73502-LT; 80048; 80053; 80069; 80164; 80202; 81001; 82533; 82565; 82805; 83605; 83735; 83880; 84100; 84132; 84145; 85014; 85018; 85025; 85610; 85730; 86850; 86900; 86901; 87040; 87077; 87150; 87186; 87449; 87641; 88305; 88311; 92610-GN; 93005; 94640; 94668; 96374; 96375; 97110-GP; 97163-GP; 97167-GO; 97530-GP; 97535-GO; 99291; A9270-GY; C1776; G8978-CM-GP; G8979-CK-GP; G8996-CK-GN; G8997-CK-GN; G8998-CK-GN; J0692; J1170; J2250; J2405; J2795; J2930; J3010; J3370; P9045